=== PATIENT | female | born 1955 | race American Indian/Alaskan Native ===

== ENCOUNTER 2020-09-28 19:11 | Emergency (ER) | payer MEDICARE ==
[2020-09-28 19:37] VITALS: BP 111/75
--- NOTE | 2020-09-29 01:16 | Emergency Department Report ---
Chief Complaint: Extremity Problem,Nontraumatic Stated Complaint: RIGHT LEG PAIN Time Seen by Provider: 09/29/20 00:54 - HPI History of Present Illness: 65-year-old female patient with history of arthritis presents to the emergency department via EMS with complaints of right knee pain for 1 year. Pain is worse when rising from a seated position. Symptoms are unchanged today. No recent fall, trauma, or injury. Patient has been medication for her arthritis. She cannot recall the name of the medication. When asked what prompted her visit to the emergency department hank, patient states, "I heard a shot in my knee would help my arthritis." No further complaints. - ROS Review of Systems: GENERAL: Negative for fever. CARDIOVASCULAR: Negative for chest pain. PULMONARY: Negative for shortness of breath. GASTROINTESTINAL: Negative for abdominal pain. MUSCULOSKELETAL: Positive for right knee pain. NEUROLOGICAL: Negative for headache. INTEGUMENTARY: Negative for rash. - Exam Vital Signs: Vital Signs 09/28/20 19:36 Temperature 97.9 F Pulse Rate 81 Respiratory 18 Rate Blood Pressure 111/75 O2 Sat by Pulse 97 Oximetry Physical Exam: General: Awake, appropriately interactive, no acute distress. Neck: Supple. Full range of motion intact. Cardiovascular: Normal peripheral perfusion. Pulmonary: No respiratory distress. Patient is speaking normally without use of accessory muscles. Skin: No apparent rashes or lesions. Neurological: No facial asymmetry. Speech is clear. Follows commands. Patient is alert and oriented. Musculoskeletal: Tenderness to palpation throughout the right knee with moderate crepitus. No obvious deformity or dislocation. Distal neurovascular motor/sensory function intact. Psych: Cooperative. Appropriate mood and affect. MSE screening note: Focused history and physical exam performed. Due to findings the following was ordered: ED Medical Decision Making - Medical Decision Making Patient presents to the emergency department via EMS requesting a knee injection for her arthritis. Symptoms have been present for 1 year, unchanged today. She is afebrile, hemodynamically stable, neurovascularly intact. No clinical indication for emergent diagnostic work-up or treatment. Patient will be discharged home and referred to orthopedics for outpatient follow-up. Strict return precautions provided. BILLING/CODING: This patient encounter does not represent a certified medical emergency. ED Disposition for MSE Clinical Impression: Encounter for medical screening examination Disposition: TO HOME OR SELFCARE Is pt being admited?: No Does the pt Need Aspirin: No Condition: Stable Instructions: Medical Screening Exam Additional Instructions: The emergency department does not administer joint injections for arthritis. You must follow-up with orthopedics for definitive management of ongoing joint pain. Call Dr. Graves's office tomorrow to schedule follow-up appointment. Return to the emergency department immediately for new or worsening symptoms. Referrals: DAI GRAVES MD [Staff Physician] - 3-5 Days Time of Disposition: 01:16
== END 2020-09-29 01:30 | disposition home or self-care (01) ==
LOC: ED 19:11
DX: M25.561 Pain in right knee (principal); Z13.9 Encounter for screening, unspecified
CPT/HCPCS: 99283

== ENCOUNTER 2020-10-11 21:05 | Emergency (ER) | payer MEDICARE ==
[2020-10-11] MEDS ORDERED: HYDROcodone/ACETAMINOPHEN 5-325 MG TAB PO ONE (23:58)
[2020-10-11] MEDS ORDERED: IBUPROFEN 800 MG TAB PO ONE (23:58)
--- NOTE | 2020-10-12 00:03 | Emergency Department Report ---
HPI - General Chief Complaint: Extremity Injury, Lower Time Seen by Provider: 10/11/20 23:56 - HPI HPI: Room 34 The patient is a 65-year-old female present with a chief complaint of right lower extremity pain. The patient states she has had pain and swelling in her right lower extremity for 1 year. Patient states she saw physician 2 weeks ago and had an x-ray performed of her knee but states she was not given a diagnosis. Patient denies any preceding trauma. Patient complains of pain especially when standing. Patient gives her pain a score of 10/10 ED Past Medical Hx - Past Medical History Previous Medical History?: Yes Hx Hypertension: Yes Hx Psychiatric Treatment: Yes (schizophrenia) - Surgical History Additional Surgical History: hysterectomy, R ankle (2006) - Family History Family history: no significant - Social History Smoking Status: Current Every Day Smoker Substance Use Type: None (Denies illicit drug use), Alcohol (Occasional) - Medications Home Medications: Home Medications Medication Instructions Recorded Confirmed Last Taken Type Ibuprofen [Motrin 800 MG tab] 800 mg PO Q8HR PRN #20 tablet 10/12/20 Unknown Rx traMADoL [Ultram] 50 mg PO Q6HR PRN #10 tablet 10/12/20 Unknown Rx ED Review of Systems ROS: Stated complaint: RIGHT LEG PAIN Other details as noted in HPI Constitutional: no symptoms reported Eyes: denies: eye pain ENT: denies: throat pain Respiratory: no symptoms reported Cardiovascular: denies: chest pain Endocrine: no symptoms reported Gastrointestinal: denies: abdominal pain Genitourinary: denies: dysuria Musculoskeletal: myalgia Neurological: denies: headache Physical Exam - Physical Exam Vital Signs: Vital Signs 10/12/20 01:00 Temperature 98.9 F Pulse Rate 81 Respiratory 12 Rate Blood Pressure 148/74 [Left] O2 Sat by Pulse 97 Oximetry Physical Exam: GENERAL: The patient is well-developed well-nourished female sitting on stretcher not appearing to be in acute distress. Flat affect HEENT: Normocephalic. Atraumatic. Extraocular motions are intact. Patient has moist mucous membranes. NECK: Supple. Trachea midline CHEST/LUNGS: Clear to auscultation. There is no respiratory distress noted. HEART/CARDIOVASCULAR: Regular. There is no tachycardia. There is no gallop rub or murmur. 2+ right DP ABDOMEN: Abdomen is soft, nontender. Patient has normal bowel sounds. There is no abdominal distention. SKIN: There is no rash. There is no edema. There is no diaphoresis. NEURO: The patient is awake, alert, and oriented. The patient is cooperative. The patient has no focal neurologic deficits. The patient has normal speech. GCS 15 MUSCULOSKELETAL: Patient complains of pain and tenderness to the right calf. There is no evidence of acute injury. ED Medical Decision Making - Radiology Data Radiology results: report reviewed (Right lower extremity Doppler), image reviewed (Right lower extremity Doppler) [facility] [address] [place] [address] Vascular Lab Report Signed Patient: BABAR MARES MR#: [id number] 7 : 1955 Acct:[id number] Age/Sex: 65 / F ADM Date: 10/11/20 Loc: ED Attending Dr: Ordering Physician: TERENCE FLYNN MD Date of Service: 10/11/20 Procedure(s): VL venous duplex LE RT Accession Number(s): [id number] cc: TERENCE FLYNN MD DUPLEX DOPPLER LOWER EXTREMITY VEINS, RIGHT INDICATION: Pain and swelling. Right lower extremity pain and swelling TECHNIQUE: Duplex doppler imaging was performed through the veins of the right lower extremity using venous compression and other maneuvers. COMPARISON: None available. FINDINGS: Common Femoral vein: Negative. Superficial Femoral vein: Negative. Popliteal vein: Negative. Calf veins: Negative. Additional findings: None. IMPRESSION: 1. No sonographic evidence for DVT in the right lower extremity. Signer Name: Jerome Hatfield MD Signed: 10/12/2020 2:38 AM Workstation Name: [id number] Transcribed By: BC Dictated By: Jerome Hatfield MD Electronically Authenticated By: Jerome Hatfield MD Signed Date/Time: 10/12/20237 DD/ 6 TD/TT: Print Cancel - Differential Diagnosis Arthritis, DVT Critical care attestation.: If time is entered above; I have spent that time in minutes in the direct care of this critically ill patient, excluding procedure time. ED Disposition Clinical Impression: Right leg pain Disposition: HOME / SELF CARE / HOMELESS Is pt being admited?: No Does the pt Need Aspirin: No Condition: Stable Additional Instructions: Return to the emergency department should you develop worsening symptoms, inability to tolerate food or liquids, high fever or any other concerns Prescriptions: Ibuprofen [Motrin 800 MG tab] 800 mg PO Q8HR PRN #20 tablet PRN Reason: Pain, Moderate (4-6) traMADoL [Ultram] 50 mg PO Q6HR PRN #10 tablet PRN Reason: Pain Referrals: DAI GRAVES MD [Staff Physician] - 3-5 Days (Dr. Graves is an orthopedic surgeon. Please follow-up with him for further evaluation) Forms: Work/School Release Form(ED) Time of Disposition: 03:19
[2020-10-12 01:09] VITALS: BP 148/74
--- NOTE | 2020-10-12 02:42 | Vascular Lab Report ---
DUPLEX DOPPLER LOWER EXTREMITY VEINS, RIGHT INDICATION: Pain and swelling. Right lower extremity pain and swelling TECHNIQUE: Duplex doppler imaging was performed through the veins of the right lower extremity using venous comp ression and other maneuvers. COMPARISON: None available. FINDINGS: Common Femoral vein: Negative. Superficial Femoral vein: Negative. Popliteal vein: Negative. Calf veins: Negative. Additional findings: None. IMPRESSION: 1. No sonographic evidence for DVT in the right lower extremity. Signer Name: Jerome Hatfield MD Signed: 10/12/2020 2:38 AM Workstation Name: [id number]
== END 2020-10-12 03:43 | disposition home or self-care (01) ==
LOC: ED 21:05
DX: M79.604 Pain in right leg (principal); I10 Essential (primary) hypertension; F20.9 Schizophrenia, unspecified; F17.200 Nicotine dependence, unspecified, uncomplicated; Z72.89 Other problems related to lifestyle; Z79.899 Other long term (current) drug therapy
CPT/HCPCS: 99284

== ENCOUNTER 2020-10-23 16:50 | Emergency (ER) | payer MEDICARE ==
--- NOTE | 2020-10-23 17:54 | Emergency Department Report ---
Chief Complaint: Extremity Problem,Nontraumatic Stated Complaint: (R) LEG TIRED PAIN Time Seen by Provider: 10/23/20 17:32 - HPI History of Present Illness: Patient is a 65-year-old female presents emergency room complaints of right knee pain that has been ongoing for over a year. She denies any fall or injury. She is ambulatory. She states the pain increases when she first gets up and after she has been walking around for a while. Patient states that she is homeless and walks frequently. She denies any leg swelling, numbness, weakness, skin changes, leg edema, calf pain. She denies any medication allergies. Vitals are stable On exam: Non toxic appearing, no acute distress atraumatic, normocephalic normal appearance of the eyes, EOMI, no periorbital edema or ecchymosis moist mucus membranes No respiratory distress, no accessory muscle use A&O x4, normal gait No bony tenderness palpation of the right lower extremity, full range of motion of the right lower extremity, no skin changes, neurovascularly intact skin is warm, dry, intact Patient presents for right knee pain She had recent Doppler ultrasound which was negative for DVT in the right lower extremity She has had no trauma She has no signs of septic joint or cellulitis No clinical signs of acute arterial occlusion Symptoms could be related to arthritis She is ambulatory without difficulty advised pt May take Tylenol as needed for pain. Follow-up with a primary care doctor. Follow-up with a orthopedic doctor. Return to emergency room for any new or worsening symptoms. Medical screen examination performed and there is no threat to life or limb at this time - Exam Vital Signs: Vital Signs 10/23/20 17:25 Temperature 98.4 F Pulse Rate 82 Respiratory 18 Rate Blood Pressure 99/58 O2 Sat by Pulse 96 Oximetry MSE screening note: Focused history and physical exam performed. Due to findings the following was ordered: ED Disposition for MSE Clinical Impression: Right knee pain Qualifiers: Chronicity: chronic Qualified Code(s): M25.561 - Pain in right knee Disposition: 01 HOME / SELF CARE / HOMELESS Is pt being admited?: No Does the pt Need Aspirin: No Condition: Stable Instructions: Chronic Knee Pain, Adult, [id number] Additional Instructions: May take Tylenol as needed for pain. Follow-up with a primary care doctor. Follow-up with a orthopedic doctor. Return to emergency room for any new or worsening symptoms. Referrals: DAI RIVERA MD [Staff Physician] - 3-5 Days RODRIGO XIONG MD [Staff Physician] - 3-5 Days Time of Disposition: 17:55 Print Language: CONGOLESE
[2020-10-23 20:19] VITALS: BP 107/67
== END 2020-10-23 20:30 | disposition home or self-care (01) ==
LOC: ED 16:50
DX: M25.561 Pain in right knee (principal)
CPT/HCPCS: 99282

== ENCOUNTER 2020-11-09 18:01 | Emergency (ER) | payer MEDICARE ==
[2020-11-09 18:08] VITALS: BP 141/88
[2020-11-09] MEDS ORDERED: IBUPROFEN 600 MG TAB PO ONE (18:36)
--- NOTE | 2020-11-09 18:36 | Emergency Department Report ---
ED Extremity Problem HPI - General Chief complaint: Extremity Problem,Nontraumatic Stated complaint: RT LEG PAIN Time Seen by Provider: 11/09/20 18:33 Source: patient Mode of arrival: Ambulatory Limitations: No Limitations - History of Present Illness Initial comments: Patient is a 65-year-old female presents emergency room complaints of right knee pain for over a year. She denies any fall or injury. She denies any leg swelling, numbness, weakness. Patient is ambulatory. She states that she frequently walks. She has not followed up with orthopedic doctor or primary care doctor as she was instructed. No allergies to medications. Patient is requesting ibuprofen. - Related Data Previous Rx's Medication Instructions Recorded Last Taken Type Ibuprofen [Motrin 800 MG tab] 800 mg PO Q8HR PRN #20 tablet 10/12/20 Unknown Rx traMADoL [Ultram] 50 mg PO Q6HR PRN #10 tablet 10/12/20 Unknown Rx Allergies Allergy/AdvReac Type Severity Reaction Status Date / Time No Known Allergies Allergy Unverified 09/28/20 19:37 ED Review of Systems ROS: Stated complaint: RT LEG PAIN Other details as noted in HPI Comment: All other systems reviewed and negative ED Past Medical Hx - Past Medical History Previous Medical History?: Yes Hx Hypertension: Yes Hx Psychiatric Treatment: Yes (schizophrenia) - Surgical History Past Surgical History?: Yes Additional Surgical History: hysterectomy, R ankle (2006) - Social History Smoking Status: Current Every Day Smoker Substance Use Type: None (Denies illicit drug use), Alcohol (Occasional) - Medications Home Medications: Home Medications Medication Instructions Recorded Confirmed Last Taken Type Ibuprofen [Motrin 800 MG tab] 800 mg PO Q8HR PRN #20 tablet 10/12/20 Unknown Rx traMADoL [Ultram] 50 mg PO Q6HR PRN #10 tablet 10/12/20 Unknown Rx ED Physical Exam - General Limitations: No Limitations General appearance: alert, in no apparent distress - Head Head exam: Present: atraumatic, normocephalic - Eye Eye exam: Present: normal appearance - ENT ENT exam: Present: mucous membranes moist - Extremities Exam Extremities exam: Present: other (no bony ttp to the RLE, FROM of the RLE, no skin changes, no erythema, no edema, no calf ttp, no ulcerations, no deformities, neurovascularly intact with strong right dp pulse) - Neurological Exam Neurological exam: Present: alert, oriented X3 - Psychiatric Psychiatric exam: Present: normal affect, normal mood - Skin Skin exam: Present: warm, dry, intact ED Course Vital Signs 11/09/20 18:05 Temperature 98 F Pulse Rate 74 Respiratory 16 Rate Blood Pressure 141/88 [Left] O2 Sat by Pulse 96 Oximetry ED Medical Decision Making - Medical Decision Making Patient is a 65-year-old female presents emergency room complaints of right knee pain for over a year. She denies any fall or injury. She denies any leg swelling, numbness, weakness. Patient is ambulatory. She states that she frequently walks. She has not followed up with orthopedic doctor or primary care doctor as she was instructed. No allergies to medications. Patient is requesting ibuprofen. Vitals are stable. On exam:no bony ttp to the RLE, FROM of the RLE, no skin changes, no erythema, no edema, no calf ttp, no ulcerations, no deformities, neurovascularly intact with strong right dp pulse. Patient had recent ultrasound of the right lower extremity with no signs of DVT. Patient has had no acute trauma to suggest acute fracture or dislocation. Patient is ambulating without difficulty. She has strong distal pulses, no signs of acute emergent arterial occlusion. Patient has no clinical signs of infection, no cellulitis or septic joint. Discussed the importance of outpatient follow-up. Advised patient May take Tylenol as needed for pain. Follow-up with a primary care doctor. Follow-up with orthopedic doctor. Return to emergency room for any new or worsening symptoms. Critical care attestation.: If time is entered above; I have spent that time in minutes in the direct care of this critically ill patient, excluding procedure time. ED Disposition Clinical Impression: Chronic pain of right knee Disposition: 01 HOME / SELF CARE / HOMELESS Is pt being admited?: No Does the pt Need Aspirin: No Condition: Stable Instructions: Chronic Knee Pain, Adult, [id number] Additional Instructions: May take Tylenol as needed for pain. Follow-up with a primary care doctor. Follow-up with orthopedic doctor. Return to emergency room for any new or worsening symptoms. Referrals: RODRIGO XIONG MD [Staff Physician] - 3-[address] [facility] [Provider Group] - 3-5 Days DAI RIVERA MD [Staff Physician] - 3-5 Days [facility] [Provider Group] - 3-5 Days Time of Disposition: 18:35 Print Language: AMHARIC
== END 2020-11-09 18:45 | disposition home or self-care (01) ==
LOC: ED 18:01
DX: M25.561 Pain in right knee (principal); G89.29 Other chronic pain; I10 Essential (primary) hypertension
CPT/HCPCS: 99282

== ENCOUNTER 2020-11-10 04:31 | Emergency (ER) | payer MEDICARE ==
--- NOTE | 2020-11-10 04:50 | Event Note ---
ED Screening Note ED Screening Note: Six 5-year-old [place] female female with a well-documented history of mental health disorders presents emergency department seeking This initial assessment/diagnostic orders/clinical plan/treatment(s) is/are subject to change based on patients health status, clinical progression and re- assessment by fellow clinical providers in the ED. Further treatment and workup at subsequent clinical providers discretion. Patient/guardian urged not to elope from the ED as their condition may be serious if not clinically assessed and managed. Initial orders include: Mental health protocol
--- NOTE | 2020-11-10 05:41 | Emergency Department Report ---
ED Psych HPI - General Chief Complaint: Psych Stated Complaint: MENTAL HEALTH LEG PAINS RT Time Seen by Provider: 11/10/20 05:31 Source: patient Mode of arrival: Ambulatory - History of Present Illness Initial Comments: Patient is 65 years old female with a long history of schizophrenia. Patient presented to the ER stating that she wanted to be admitted to a psychiatric facility. When I asked the patient if she is having any auditory or visual hallucination patient denied. She stated that she wanted to hurt herself because her leg is hurting and she is not getting any help. She denied homicidal ideation. MD Complaint: other - Related Data Previous Rx's Medication Instructions Recorded Last Taken Type Ibuprofen [Motrin 800 MG tab] 800 mg PO Q8HR PRN #20 tablet 10/12/20 Unknown Rx traMADoL [Ultram] 50 mg PO Q6HR PRN #10 tablet 10/12/20 Unknown Rx Allergies Allergy/AdvReac Type Severity Reaction Status Date / Time No Known Allergies Allergy Unverified 09/28/20 19:37 ED Review of Systems ROS: Stated complaint: MENTAL HEALTH LEG PAINS RT Other details as noted in HPI Comment: All other systems reviewed and negative Constitutional: denies: chills, fever Respiratory: denies: cough, shortness of breath, SOB with exertion Cardiovascular: denies: chest pain, palpitations Gastrointestinal: denies: abdominal pain, nausea, vomiting Musculoskeletal: denies: back pain Neurological: denies: headache, weakness, numbness, paresthesias, confusion Psychiatric: suicidal thoughts. denies: anxiety, depression, auditory hallucinations, visual hallucinations, homicidal thoughts ED Past Medical Hx - Past Medical History Previous Medical History?: Yes Hx Hypertension: Yes Hx Psychiatric Treatment: Yes (schizophrenia) - Surgical History Past Surgical History?: Yes Additional Surgical History: hysterectomy, R ankle (2006) - Social History Smoking Status: Never Smoker Substance Use Type: None - Medications Home Medications: Home Medications Medication Instructions Recorded Confirmed Last Taken Type Ibuprofen [Motrin 800 MG tab] 800 mg PO Q8HR PRN #20 tablet 10/12/20 Unknown Rx traMADoL [Ultram] 50 mg PO Q6HR PRN #10 tablet 10/12/20 Unknown Rx ED Physical Exam - General Limitations: No Limitations General appearance: alert, in no apparent distress - Eye Eye exam: Present: normal appearance - ENT ENT exam: Present: normal exam, normal orophraynx, mucous membranes moist - Neck Neck exam: Present: normal inspection, full ROM. Absent: tenderness, meningismus - Respiratory Respiratory exam: Present: normal lung sounds bilaterally - Cardiovascular Cardiovascular Exam: Present: regular rate, normal rhythm, normal heart sounds - GI/Abdominal GI/Abdominal exam: Present: soft, normal bowel sounds. Absent: distended, tenderness, guarding, rebound, rigid, organomegaly, mass, bruit, pulsatile mass, hernia - Extremities Exam Extremities exam: Present: normal inspection, full ROM, normal capillary refill. Absent: tenderness, pedal edema, joint swelling, calf tenderness - Back Exam Back exam: Present: normal inspection, full ROM. Absent: CVA tenderness (R), CVA tenderness (L) - Neurological Exam Neurological exam: Present: alert, oriented X3, CN II-XII intact, normal gait, reflexes normal. Absent: motor sensory deficit - Psychiatric Psychiatric exam: Present: flat affect, suicidal ideation. Absent: homicidal ideation - Skin Skin exam: Present: warm, intact, normal color ED Course Vital Signs 11/10/20 11/10/20 04:35 05:30 Temperature 97.3 F L 97.3 F L Pulse Rate 79 71 Respiratory 16 18 Rate Blood Pressure 182/78 Blood Pressure 182/95 [Left] O2 Sat by Pulse 100 100 Oximetry Critical care attestation.: If time is entered above; I have spent that time in minutes in the direct care of this critically ill patient, excluding procedure time. ED Disposition Condition: Stable Referrals: PRIMARY CARE, [Primary Care Provider] - 3-5 Days
[2020-11-10 05:43] LABS: Blood Urea Nitrogen 11 mg/dL (7-17); Calcium 9.3 mg/dL (8.4-10.2); Hemolysis Index 3
[2020-11-10 05:45] LABS: Basophils # (Auto) 0.1 K/mm3 (0.0-0.1); Basophils % (Auto) 0.6 % (0.0-1.8); Eosinophils # (Auto) 0.3 K/mm3 (0.0-0.4); Eosinophils % (Auto) 2.9 % (0.0-4.3); Hematocrit 40.3 % (30.3-42.9); Hemoglobin 13.4 gm/dl (10.1-14.3); Lymphocytes # (Auto) 2.6 K/mm3 (1.2-5.4); Lymphocytes % (Auto) 27.1 % (13.4-35.0); Mean Corpuscular HGB Conc 33 % (30-34); Mean Corpuscular Volume 88 fl (79-97); Monocytes % (Auto) 9.9 % (0.0-7.3); Platelet Count 275 K/mm3 (140-440); Red Blood Count 4.57 M/mm3 (3.65-5.03); Red Cell Distribution Width 15.1 % (13.2-15.2)
[2020-11-10 05:52] LABS: BUN/Creatinine Ratio 22
[2020-11-10 08:41] VITALS: BP 162/88
--- NOTE | 2020-11-10 10:28 | Event Note ---
Date: 11/10/20 The patient was evaluated in the emergency department for symptoms described in the history of present illness. He/she was evaluated in the context of the global COVID-19 pandemic, which necessitated consideration that the patient might be at risk for infection with the virus that causes COVID-19. Institutional protocols and algorithms that pertain to the evaluation of patients at risk for COVID-19 are in a state of rapid change based on information released by regulatory bodies including the CDC and federal and state organizations. These policies and algorithms were followed during the patient's care in the emergency department. Please note that these policies, procedures and recommendations changed on a rapid basis. Laboratory studies, vital signs, nursing documentation, ER documentation, and psychiatric documentation are reviewed and appreciated. Nursing team reports no acute events this morning or concerns. The patient is awake and ambulating and does not appear to be in any acute distress. The patient complains of chronic thigh pain but otherwise denies acute pain. The patient denies urinary symptoms. The patient states she is not homicidal or suicidal at this time. The patient was deemed medically suitable for psychiatric disposition and placement during her initial ER evaluation. The patient continues to remain medically suitable for psychiatric placement and disposition. sHe is currently pending psychiatric placement. 11/10/2020; 13: 08 The psychiatry team has recommended discharge. As per collateral/mental health documentation: Per staff, Pt. reside at the address listed below. Arranged transport via [facility]. ETA scheduled at 2:30pm. Pt confirmed that staff are present at the residence. Spoke with pts caregiver, Naye Mansfield [phone] who confirmed that pt resides at residence. Pt is able to discharge to residence. [facility] [employer] provided ETA. No concerns reported. Malorie Bourne [address] [place] [address] Caregiver: Naye Mansfield Patient has a safe discharge arranged. She will be discharged. Vital Signs 11/10/20 11/10/20 11/10/20 04:35 05:30 08:40 Temperature 97.3 F L 97.3 F L 97.6 F Pulse Rate 79 71 72 Respiratory 16 18 18 Rate Blood Pressure 182/78 Blood Pressure 182/95 162/88 [Left] O2 Sat by Pulse 100 100 100 Oximetry Lab Results 11/10/20 11/10/20 11/10/20 Range/Units 04:52 04:52 04:52 WBC 9.7 (4.5-11.0) K/mm3 RBC 4.57 (3.65-5.03) M/mm3 Hgb 13.4 (10.1-14.3) gm/dl Hct 40.3 (30.3-42.9) % MCV 88 (79-97) fl MCH 29 (28-32) pg MCHC 33 (30-34) % RDW 15.1 (13.2-15.2) % Plt Count 275 (140-440) K/mm3 Lymph % (Auto) 27.1 (13.4-35.0) % [place] % (Auto) 9.9 H (0.0-7.3) % Eos % (Auto) 2.9 (0.0-4.3) % Baso % (Auto) 0.6 (0.0-1.8) % Lymph # (Auto) 2.6 (1.2-5.4) K/mm3 [place] # (Auto) 1.0 H (0.0-0.8) K/mm3 Eos # (Auto) 0.3 (0.0-0.4) K/mm3 Baso # (Auto) 0.1 (0.0-0.1) K/mm3 Seg Neutrophils % 59.5 (40.0-70.0) % Seg Neutrophils # 5.8 (1.8-7.7) K/mm3 Sodium 141 (137-145) mmol/L Potassium 3.9 (3.6-5.0) mmol/L Chloride 104.2 (98-107) mmol/L Carbon Dioxide 25 (22-30) mmol/L Anion Gap 16 mmol/L BUN 11 (7-17) mg/dL Creatinine 0.5 L (0.6-1.2) mg/dL Estimated GFR > 60 ml/min BUN/Creatinine Ratio 22 % Glucose 80 (65-100) mg/dL Calcium 9.3 (8.4-10.2) mg/dL Salicylates < 0.3 L (2.8-20.0) mg/dL Acetaminophen (10.0-30.0) ug/mL Plasma/Serum Alcohol (0-0.07) % 11/10/20 11/10/20 Range/Units 04:52 04:52 WBC (4.5-11.0) K/mm3 RBC (3.65-5.03) M/mm3 Hgb (10.1-14.3) gm/dl Hct (30.3-42.9) % MCV (79-97) fl MCH (28-32) pg MCHC (30-34) % RDW (13.2-15.2) % Plt Count (140-440) K/mm3 Lymph % (Auto) (13.4-35.0) % [place] % (Auto) (0.0-7.3) % Eos % (Auto) (0.0-4.3) % Baso % (Auto) (0.0-1.8) % Lymph # (Auto) (1.2-5.4) K/mm3 [place] # (Auto) (0.0-0.8) K/mm3 Eos # (Auto) (0.0-0.4) K/mm3 Baso # (Auto) (0.0-0.1) K/mm3 Seg Neutrophils % (40.0-70.0) % Seg Neutrophils # (1.8-7.7) K/mm3 Sodium (137-145) mmol/L Potassium (3.6-5.0) mmol/L Chloride (98-107) mmol/L Carbon Dioxide (22-30) mmol/L Anion Gap mmol/L BUN (7-17) mg/dL Creatinine (0.6-1.2) mg/dL Estimated GFR ml/min BUN/Creatinine Ratio % Glucose (65-100) mg/dL Calcium (8.4-10.2) mg/dL Salicylates (2.8-20.0) mg/dL Acetaminophen 5.0 L (10.0-30.0) ug/mL Plasma/Serum Alcohol < 0.01 (0-0.07) %
--- NOTE | 2020-11-10 11:24 | Consultation ---
History of Present Illness - Reason for Consult Consult date: 11/10/20 Reason for consult: mental health evaluation - History of Present Psychiatric Illness Per ED Note: Patient is 65 years old female with a long history of schizophrenia. Patient presented to the ER stating that she wanted to be admitted to a psychiatric facility. When I asked the patient if she is having any auditory or visual hallucination patient denied. She stated that she wanted to hurt herself because her leg is hurting and she is not getting any help. She denied homicidal ideation. Felicia Lorenzo is a 65 year old female with history of Schizophrenia who presents to the ED wanting to be admitted to a psychiatric hospital. In my interview with the patient, she reports that " my leg gave out on me." She reports living in a fci with senior resident care director named "Naye"; the patient reports that she does not want to go back there because "they don't give me allowance" the patient became tearful. She reports being compliant with psychotropic medications and see a psychiatrist at [facility]. The patient denies having any current suicidal/ homicidal ideation and denies hallucinations. PAST PSYCHIATRIC HISTORY Diagnoses: Schizophrenia Suicide attempts or Self-harm behavior: Yes Prior psychiatric hospitalizations: Yes Substance Abuse history: Patient denies Previous psychiatric medications tried: Seroquel, cogentin Outpatient treatment: Yes - [facility] PAST MEDICAL HISTORY: Family Psychiatric History: Not available SOCIAL HISTORY Marital Status: Single Living Arrangements: Lives in a fci Employment Status: Retired Access to guns/weapons: None reported Education: 11th grade History of Abuse: None reported Legal History: None reported REVIEW OF SYSTEMS Constitutional: Negative for weight loss ENT: Negative for stridor Respiratory: Negative for cough or hemoptysis All other systems reviewed and are negative MENTAL STATUS EXAMINATION General Appearance and Behavior: Age appropriate, good hygiene, wearing appropriate clothes, good eye contact, cooperative polite with questioning. Cooperation: Participating/engaged Psychomotor Behavior: unremarkable and within normal limits Mood: Depressed Affect and affective range: congruent with mood Thought Process: Tangential Thought Content: Not Suicidal Speech: Normal volume, Regular rate and rhythm Intellectual Functioning: Average Suicidal Ideation: Denies Homicidal Ideation: Denies Hallucinations: Denies Impulse Control: Unimpaired Insight and Judgment: Limited insight and fair judgment Memory: Normal Attention: Divided Orientation: Alert, oriented Assessment and Plan (1) Schizophrenia Current Visit: Yes Status: Acute F20.9 RECOMMENDATIONS 1013 Seroquel 50mg po QHS Cogentin 1mg po daily Risks, benefits and alternatives of medications discussed with the patient, questions answered and consent obtained from patient. PSYCHOTHERAPY: Supportive psychotherapy provided MEDICAL: Per primary team DELIRIUM PRECAUTIONS: Please re-orient patient frequently, keep lights on during the day, and minimize benzodiazepines and opiates as these medications could worsen patient's confusion. GEOMAGNETICIAN: Per medical team DISPOSITION: Recommend acute inpatient psychiatric hospitalization at this time FOLLOW-UP: Will follow Thank you for the consult. Please contact with any questions and/or concerns. Medications and Allergies Allergies Allergy/AdvReac Type Severity Reaction Status Date / Time No Known Allergies Allergy Unverified 09/28/20 19:37 Home Medications Medication Instructions Recorded Confirmed Last Taken Type Ibuprofen [Motrin 800 MG tab] 800 mg PO Q8HR PRN #20 tablet 10/12/20 Unknown Rx traMADoL [Ultram] 50 mg PO Q6HR PRN #10 tablet 10/12/20 Unknown Rx Mental Status Exam - Vital signs Last Vital Signs Temp 97.6 F 11/10/20 08:40 Pulse 72 11/10/20 08:40 Resp 18 11/10/20 08:40 BP 162/88 11/10/20 08:40 Pulse Ox 100 11/10/20 08:40 Results Result Diagrams: 11/10/20 04:52 11/10/20 04:52 Abnormal lab results 11/10/20 11/10/20 11/10/20 Range/Units 04:52 04:52 04:52 [place] % (Auto) 9.9 H (0.0-7.3) % [place] # (Auto) 1.0 H (0.0-0.8) K/mm3 Creatinine 0.5 L (0.6-1.2) mg/dL Salicylates < 0.3 L (2.8-20.0) mg/dL Acetaminophen (10.0-30.0) ug/mL 11/10/20 Range/Units 04:52 [place] % (Auto) (0.0-7.3) % [place] # (Auto) (0.0-0.8) K/mm3 Creatinine (0.6-1.2) mg/dL Salicylates (2.8-20.0) mg/dL Acetaminophen 5.0 L (10.0-30.0) ug/mL All other labs normal.
[2020-11-10] MEDS ORDERED: BENZTROPINE 1 MG TAB PO SCH (12:00)
[2020-11-10] MEDS ORDERED: QUEtiapine 25 MG TAB PO SCH (22:00)
== END 2020-11-10 14:54 | disposition home health service (06) ==
LOC: ED 04:31
DX: R45.851 Suicidal ideations (principal); F20.9 Schizophrenia, unspecified; I10 Essential (primary) hypertension; Z98.890 Other specified postprocedural states
CPT/HCPCS: 36415; 80048; 80320; 85025; 99284; G0480